=== PATIENT | female | born 1930 | race Caucasian/White ===

== ENCOUNTER → 2019-06-29 | Outpatient (CLI) | payer MEDICARE ==
[~2019-06-29] MED LIST: ALEN70TA10 PO; ASPI-1197 PO; CALC-24 PO; DILT120T PO; LORA10TA7 PO; OMEP40CA13 PO; WARF2.5T85 PO; [UNRECOGNIZED DRUG - OTHER] PO
== END | disposition home or self-care (01) ==
LOC: RAH 09:08
PROVIDERS: ATTEND Internal Medicine
DX: K80.20 Calculus of gallbladder without cholecystitis without obstruction (principal)
CPT/HCPCS: 76705

== ENCOUNTER → 2019-07-27 | Outpatient (CLI) | payer MEDICARE | END | disposition home or self-care (01) | LOC: RAH 07:41 | PROVIDERS: ATTEND Internal Medicine | DX: I70.0 Atherosclerosis of aorta (principal); G89.29 Other chronic pain | CPT/HCPCS: 76775 ==

== ENCOUNTER → 2020-03-26 | Outpatient (CLI) | payer MEDICARE ==
[~2020-03-26] MED LIST changes: -ALEN70TA10 PO; +ALEN70TA80 PO
== END | disposition home or self-care (01) ==
LOC: RAH 14:18
PROVIDERS: ATTEND Podiatrist
DX: I70.213 Atherosclerosis of native arteries of extremities with intermittent claudication, bilateral legs (principal); Z79.01 Long term (current) use of anticoagulants
CPT/HCPCS: 93922

== ENCOUNTER → 2021-10-09 | Outpatient (CLI) | payer MEDICARE ==
[~2021-10-09] MED LIST changes: -OMEP40CA13 PO; +OMEP40CA21 PO
== END | disposition home or self-care (01) ==
LOC: RAH 09:06
PROVIDERS: ATTEND Internal Medicine
DX: I73.9 Peripheral vascular disease, unspecified (principal); R09.89 Other specified symptoms and signs involving the circulatory and respiratory systems
CPT/HCPCS: 76770; 93925; 93975

== ENCOUNTER 2021-11-25 09:13 | Observation (INO) | payer MEDICARE ==
[2021-11-24 13:50] LABS: BASOPHILS % (AUTO) 1.2 % (0.0-5.0); EOSINOPHILS % (AUTO) 2.3 % (0.0-8.0); HEMATOCRIT 42.6 % (36-48); LYMPHOCYTES % (AUTO) 16.5 % (21.0-51.0); MEAN CORPUSCULAR HEMOGLOBIN 28.9 pg (27.0-33.0); MEAN CORPUSCULAR HGB CONC 31.5 g/dL (32.0-36.0); MONOCYTES % (AUTO) 8.4 % (3.0-13.0); NEUTROPHILS % (AUTO) 71.3 % (40.0-77.0); PLATELET COUNT (AUTO) 225 K/uL (130-400); RED BLOOD CELL COUNT(AUTO) 4.63 MIL/uL (4.00-5.50); RED CELL DISTRIBUTION WIDTH 13.9 % (11.0-15.5); WHITE BLOOD COUNT (AUTO) 6.9 K/uL (4.8-10.8)
[2021-11-24 14:01] LABS: CREATININE 1.4 mg/dL (0.5-1.5); POTASSIUM 4.7 mmol/L (3.5-5.1)
[2021-11-24 14:02] LABS: APPEARANCE,URINE CLEAR (CLEAR); BILIRUBIN,URINE NEGATIVE (NEGATIVE); COLOR,URINE YELLOW (YELLOW); GLUCOSE, URINE (UA) NEGATIVE (NEGATIVE); KETONES,URINE NEGATIVE (NEGATIVE); LEUKOCYTE ESTERASE ,URINE 75 Leu/uL (NEGATIVE); NITRATE,URINE NEGATIVE (NEGATIVE); OCCULT BLOOD,URINE NEGATIVE (NEGATIVE); PH,URINE 5.5 (5.0-8.0); PROTEIN,URINE 100 mg/dL (NEGATIVE); UROBILINOGEN,URINE 0.2 mg/dL (0.2-1.0)
[2021-11-24 14:06] LABS: INR 0.94 (0.85-1.15); PROTHROMBIN TIME 10.3 SEC (9.6-11.6)
[2021-11-24 14:07] LABS: PARTIAL THROMBOPLASTIN TIME 29.5 SEC (26.3-35.5)
[2021-11-24 14:10] LABS: BACTERIA,URINE RARE /HPF (None Seen); MUCUS,URINE FEW LPF (None Seen); OTHER CASTS, URINE 1 /LPF (None Seen); SQUAMOUS EPITHELIAL CELL,UR FEW /HPF (0-2)
[2021-11-24 14:31] LABS: B-TYPE NATRIURETIC PEPTIDE 724 pg/mL (0-100)
[2021-11-24 14:56] VITALS: BP 189/71
[~2021-11-25] VITALS: Ht 157.5 cm; Wt 53.9 kg
[2021-11-25] VITALS (10 sets, daily range): BP systolic 142–199; BP diastolic 59–99
[~2021-11-25 09:13] MED LIST changes: -ALEN70TA80 PO; +APIX5TAB PO; -ASPI-1197 PO; +BETA1TAB20 PO; -CALC-24 PO; +DILT120C92 PO; -DILT120T PO; +FLUT12AE IH; +HYDR200T4 PO; +LEVO25CA4 PO; -LORA10TA7 PO; -OMEP40CA21 PO; -WARF2.5T85 PO; -[UNRECOGNIZED DRUG - OTHER] PO
[2021-11-25] MEDS ORDERED: 0.9%NACL 1000ML 1,000 ML IV ONE (09:35)
[2021-11-25] MEDS ORDERED: LIDOCAINE HCL 1% 10 ML VIAL ONE (12:30)
[2021-11-25] MEDS ORDERED: NITROGLYCERIN 50MG VIAL ONE (12:31)
[2021-11-25] MEDS ORDERED: HEPARIN 10,000 UNIT/10ML (1,000 UNIT/ML) VIAL ONE (12:31)
[2021-11-25] MEDS ORDERED: VERAPAMIL HCL 2.5 MG/ML VIAL ONE (12:31)
[2021-11-25] MEDS ORDERED: IODIXANOL 320 MG/ML 100 ML VIAL ONE (12:33)
[2021-11-25] MEDS ORDERED: FENTANYL CITRATE PF 50 MCG/1 ML 2ML VIAL ONE ×2 (12:50→13:34)
[2021-11-25] MEDS: 0.9%NACL 1000ML 500 ML IV SCH ×2 (14:00→20:14)
[2021-11-25] MEDS ORDERED: ALBUTEROL 0.083% 2.5 MG/3 ML INH IH PRN (14:00)
[2021-11-25] MEDS ORDERED: ONDANSETRON 4MG INJ IV PRN (14:00)
[2021-11-25] MEDS ORDERED: ACETAMINOPHEN 325 MG TAB PO PRN (14:00)
[2021-11-25] MEDS ORDERED: LABETALOL 20MG SYG IV PRN (18:30)
[2021-11-26] VITALS: BP 179/72
[2021-11-26] MEDS: 0.9%NACL 1000ML 500 ML IV SCH (02:20)
[2021-11-26 04:12] LABS: HEMATOCRIT 35.7 % (36-48); MEAN CORPUSCULAR HEMOGLOBIN 29.3 pg (27.0-33.0); MEAN CORPUSCULAR HGB CONC 32.8 g/dL (32.0-36.0); MEAN CORPUSCULAR VOLUME 89.5 fL (79-99); RED BLOOD CELL COUNT(AUTO) 3.99 MIL/uL (4.00-5.50); RED CELL DISTRIBUTION WIDTH 13.5 % (11.0-15.5)
[2021-11-26 04:27] LABS: POTASSIUM 4.1 mmol/L (3.5-5.1)
[2021-11-26 05:29] VITALS: BP 161/77
[2021-11-26] MEDS ORDERED: LEVOTHYROXINE 25 MCG TABLET PO SCH (06:30)
[2021-11-26 07:00] VITALS: BP 164/76
[2021-11-26] MEDS ORDERED: APIX2.5T PO (08:11)
[2021-11-26] MEDS ORDERED: DILTIAZEM 120MG SR CAP PO SCH (09:00)
== END 2021-11-26 10:00 | disposition home or self-care (01) ==
LOC: DAH 09:13 → DAHIP 09:14 → 2DH 14:30 → UNDODISOB 11-26 10:00
PROVIDERS: ADMIT Internal Medicine; ATTEND Internal Medicine
DX: I73.9 Peripheral vascular disease, unspecified (principal); R01.1 Cardiac murmur, unspecified; R09.89 Other specified symptoms and signs involving the circulatory and respiratory systems; I10 Essential (primary) hypertension; I70.1 Atherosclerosis of renal artery; E11.51 Type 2 diabetes mellitus with diabetic peripheral angiopathy without gangrene; I48.0 Paroxysmal atrial fibrillation; Z79.01 Long term (current) use of anticoagulants; Z87.891 Personal history of nicotine dependence; Z90.710 Acquired absence of both cervix and uterus
CPT/HCPCS: 80048 ×2; 83880; 85025; 85610; 85730; 87088; 81001; 36415 ×2; 71045; 93005; 36200; 75716; 85027; C1769 ×2; C1894 ×2; G0378 ×20; J3010 ×2; J7030; J1644 ×2; J3490 ×3; Q9967; A4215; A4223 ×3; A4222; A4221; A4663; A4216; A4606; 99156; 99157

== ENCOUNTER → 2021-12-12 | Outpatient (CLI) | payer MEDICARE ==
[~2021-12-12] MED LIST changes: +APIX2.5T PO; -APIX5TAB PO
== END | disposition home or self-care (01) ==
LOC: SHCH 08:04
PROVIDERS: ATTEND Internal Medicine
DX: I08.0 Rheumatic disorders of both mitral and aortic valves (principal); I10 Essential (primary) hypertension; E78.5 Hyperlipidemia, unspecified; E11.9 Type 2 diabetes mellitus without complications; R01.1 Cardiac murmur, unspecified
CPT/HCPCS: 93306

== ENCOUNTER 2022-01-24 21:03 | Inpatient (IN) | payer MEDICARE ==
[~2022-01-24] VITALS: Ht 157.5 cm; Wt 54.3 kg
[2022-01-24] MEDS ORDERED: SOLU-MEDROL 125MG VIAL ONE (21:09)
[2022-01-24 21:30] LABS: ABG BASE EXCESS -2.8 mmol/L (-2.0-3.0); ABG HCO3 22.1 mmol/L (21.0-28.0); ABG OXYGEN SATURATION 99.9 % (95.0-99.0); ABG PCO2 39 mmHg (32-45)
[2022-01-24 21:31] LABS: BASOPHILS % (AUTO) 1.1 % (0.0-5.0); EOSINOPHILS % (AUTO) 2.9 % (0.0-8.0); HEMATOCRIT 36.8 % (36-48); MEAN CORPUSCULAR HGB CONC 32.3 g/dL (32.0-36.0); MEAN CORPUSCULAR VOLUME 89.5 fL (79-99); NEUTROPHILS % (AUTO) 74.5 % (40.0-77.0); PLATELET COUNT (AUTO) 222 K/uL (130-400); RED BLOOD CELL COUNT(AUTO) 4.11 MIL/uL (4.00-5.50); RED CELL DISTRIBUTION WIDTH 13.7 % (11.0-15.5); WHITE BLOOD COUNT (AUTO) 8.3 K/uL (4.8-10.8)
[2022-01-24 21:49] LABS: CREATININE 1.4 mg/dL (0.5-1.5); POTASSIUM 4.4 mmol/L (3.5-5.1)
[2022-01-24] MEDS ORDERED: DILTIAZEM 25MG INJ IVP ONE (22:00)
[2022-01-24 22:03] LABS: ALBUMIN 3.6 g/dL (3.5-5.0); TOTAL PROTEIN, SERUM 7.4 g/dL (6.0-8.3)
[2022-01-24] MEDS: DILTIAZEM 125 MG/25 ML INJ 125 MG in 0.9%NACL 100ML 100 ML IV SCH (22:08)
[2022-01-24 22:13] LABS: B-TYPE NATRIURETIC PEPTIDE 1550 pg/mL (0-100)
[2022-01-24] MEDS ORDERED: ACETAMINOPHEN 325 MG TAB PO ONE (23:00)
[2022-01-24] MEDS ORDERED: ONDANSETRON 4MG INJ IV PRN (23:30)
[2022-01-24] MEDS ORDERED: IPRATROPIUM/ALBUTEROL SULFATE 3 ML SOLUTION IH PRN (23:30)
[2022-01-24] MEDS ORDERED: NITROGLYCERIN 0.4 MG SL TAB SL PRN (23:30)
[2022-01-24] MEDS ORDERED: ACETAMINOPHEN 325 MG TAB PO PRN ×2 (23:30)
[2022-01-25] VITALS (7 sets, daily range): BP systolic 122–161; BP diastolic 65–90
[2022-01-25] MEDS ORDERED: DILTIAZEM 125MG+100 ML NS 125 ML IV ONE (00:16)
[2022-01-25] MEDS: IPRATROPIUM/ALBUTEROL SULFATE 3 ML SOLUTION IH SCH ×3 (02:32→10:14)
[2022-01-25] MEDS ORDERED: LEVO25CA4 PO (02:36)
[2022-01-25] MEDS ORDERED: LEVO50CA4 PO (02:37)
[2022-01-25] MEDS ORDERED: DILT240C46 PO (02:38)
[2022-01-25] MEDS ORDERED: ALBU18HF7 IH (02:42)
[2022-01-25] MEDS ORDERED: ATOR10 PO (02:43)
[2022-01-25] MEDS ORDERED: EYE GUARD PLUS (02:43)
[2022-01-25 03:38] LABS: APPEARANCE,URINE CLEAR (CLEAR); BILIRUBIN,URINE NEGATIVE (NEGATIVE); COLOR,URINE YELLOW (YELLOW); GLUCOSE, URINE (UA) NEGATIVE (NEGATIVE); KETONES,URINE 10 mg/dL (NEGATIVE); LEUKOCYTE ESTERASE ,URINE 75 Leu/uL (NEGATIVE); MUCUS,URINE FEW LPF (None Seen); NITRATE,URINE NEGATIVE (NEGATIVE); OCCULT BLOOD,URINE NEGATIVE (NEGATIVE); PH,URINE 5.5 (5.0-8.0); PROTEIN,URINE 100 mg/dL (NEGATIVE); SQUAMOUS EPITHELIAL CELL,UR FEW /HPF (0-2)
[2022-01-25 03:48] LABS: AMPHET/METH SCREEN,URINE NEGATIVE (NEGATIVE); BARBITURATE SCREEN, URINE NEGATIVE (NEGATIVE); BENZODIAZEPINES SCREEN,URINE NEGATIVE (NEGATIVE); CANNABINOID SCREEN,URINE NEGATIVE (NEGATIVE); COCAINE SCREEN,URINE NEGATIVE (NEGATIVE); OPIATE SCREEN,URINE NEGATIVE (NEGATIVE); PHENCYCLIDINE SCREEN,URINE NEGATIVE (NEGATIVE)
[2022-01-25 03:50] LABS: BASOPHILS % (AUTO) 0.4 % (0.0-5.0); HEMATOCRIT 33.5 % (36-48); LYMPHOCYTES % (AUTO) 4.2 % (21.0-51.0); MEAN CORPUSCULAR HEMOGLOBIN 28.6 pg (27.0-33.0); MEAN CORPUSCULAR HGB CONC 31.6 g/dL (32.0-36.0); MEAN CORPUSCULAR VOLUME 90.5 fL (79-99); MONOCYTES % (AUTO) 1.3 % (3.0-13.0); NEUTROPHILS % (AUTO) 93.7 % (40.0-77.0); PLATELET COUNT (AUTO) 204 K/uL (130-400); RED CELL DISTRIBUTION WIDTH 13.6 % (11.0-15.5); WHITE BLOOD COUNT (AUTO) 6.9 K/uL (4.8-10.8)
[2022-01-25 03:59] LABS: CREATININE 1.4 mg/dL (0.5-1.5); POTASSIUM 4.9 mmol/L (3.5-5.1)
[2022-01-25 04:08] LABS: ALBUMIN 3.2 g/dL (3.5-5.0); MAGNESIUM 2.1 mg/dL (1.80-2.40); TOTAL PROTEIN, SERUM 6.6 g/dL (6.0-8.3)
[2022-01-25] MEDS: DILTIAZEM 120MG SR CAP PO SCH (08:11)
[2022-01-25] MEDS: FAMOTIDINE 20MG TAB PO SCH ×2 (08:15→08:18)
[2022-01-25] MEDS: FUROSEMIDE 40MG VIAL IV SCH ×2 (08:17→21:06)
[2022-01-25] MEDS ORDERED: DILTIAZEM 120MG SR CAP PO SCH (09:00)
[2022-01-25] MEDS ORDERED: HEPARIN 5,000 UNIT VIAL SQ SCH (09:00)
[2022-01-25] MEDS ORDERED: FLUTICASONE/VILANTEROL 1 EACH AER.POW.BA IH SCH (09:22)
[2022-01-25] MEDS: LEVOTHYROXINE 50 MCG TABLET PO SCH (09:27)
[2022-01-25] MEDS ORDERED: SOLU-MEDROL 40MG VIAL IVP SCH (12:00)
[2022-01-25] MEDS: IPRATROPIUM 0.5 MG/2.5 ML INH IH SCH ×3 (12:00→23:20)
[2022-01-25] MEDS ORDERED: THIAMINE HCL 100 MG/ML 2ML VIAL IVP SCH (12:00)
[2022-01-25] MEDS: ENOXAPARIN SODIUM 30 MG/0.3 ML SQ SCH ×2 (18:00→18:23)
[2022-01-25] MEDS: NITROFURANTOIN MONOHYD/M-CRYST 100 MG CAPSULE PO SCH ×2 (18:22→21:06)
[2022-01-25] MEDS: BUDESONIDE 0.5 MG/2 ML INH IH SCH (19:01)
[2022-01-25] MEDS ORDERED: APIXABAN 2.5 MG TABLET PO SCH (21:00)
[2022-01-25] MEDS: SOLU-MEDROL 40MG VIAL IVP SCH (21:06)
[2022-01-25] MEDS: DOXYCYCLINE HYCLATE 100 MG TABLET PO SCH (21:06)
[2022-01-25] MEDS: ATORVASTATIN 10 MG TABLET PO SCH (21:06)
[2022-01-26 04:15] VITALS: BP 144/87
[2022-01-26] MEDS: HYDROXYZINE 25 MG TABLET PO ONE ×2 (05:12→05:47)
[2022-01-26] MEDS: LEVOTHYROXINE 25 MCG TABLET PO SCH ×2 (05:12→05:47)
[2022-01-26 06:47] LABS: HEMATOCRIT 31.9 % (36-48); MEAN CORPUSCULAR HEMOGLOBIN 29.1 pg (27.0-33.0); MEAN CORPUSCULAR HGB CONC 32.9 g/dL (32.0-36.0); MEAN CORPUSCULAR VOLUME 88.4 fL (79-99); RED BLOOD CELL COUNT(AUTO) 3.61 MIL/uL (4.00-5.50); RED CELL DISTRIBUTION WIDTH 13.6 % (11.0-15.5); WHITE BLOOD COUNT (AUTO) 10.7 K/uL (4.8-10.8)
[2022-01-26 07:05] LABS: ALBUMIN 3.4 g/dL (3.5-5.0); CREATININE 1.7 mg/dL (0.5-1.5); MAGNESIUM 2.1 mg/dL (1.80-2.40); PHOSPHORUS 6.9 mg/dL (2.5-4.9); POTASSIUM 3.9 mmol/L (3.5-5.1); TOTAL PROTEIN, SERUM 6.5 g/dL (6.0-8.3)
[2022-01-26 07:10] LABS: INR 1.05 (0.85-1.15); PROTHROMBIN TIME 11.4 SEC (9.6-11.6)
[2022-01-26 07:12] LABS: PARTIAL THROMBOPLASTIN TIME 27.8 SEC (26.3-35.5)
[2022-01-26] MEDS: IPRATROPIUM 0.5 MG/2.5 ML INH IH SCH ×3 (07:16→19:19)
[2022-01-26] MEDS: BUDESONIDE 0.5 MG/2 ML INH IH SCH ×2 (07:16→19:24)
[2022-01-26 08:00] VITALS: BP 121/79
[2022-01-26] MEDS: FUROSEMIDE 40MG VIAL IV SCH (08:34)
[2022-01-26] MEDS: THIAMINE HCL 100 MG/ML 2ML VIAL IVP SCH (08:34)
[2022-01-26] MEDS: DILTIAZEM 120MG SR CAP PO SCH (08:35)
[2022-01-26] MEDS: NITROFURANTOIN MONOHYD/M-CRYST 100 MG CAPSULE PO SCH ×2 (08:35→20:06)
[2022-01-26] MEDS: SOLU-MEDROL 40MG VIAL IVP SCH ×2 (08:35→20:06)
[2022-01-26] MEDS: DOXYCYCLINE HYCLATE 100 MG TABLET PO SCH ×2 (08:36→20:06)
[2022-01-26] MEDS: MULTIVITAMIN WITH MINERALS TABLET PO SCH (08:36)
[2022-01-26] MEDS: HYDROXYCHLOROQUINE SULFATE 200 MG TAB PO SCH (08:36)
[2022-01-26] MEDS: FAMOTIDINE 20MG TAB PO SCH ×2 (08:37→20:07)
[2022-01-26] MEDS: ENOXAPARIN SODIUM 30 MG/0.3 ML SQ SCH (08:37)
[2022-01-26] MEDS ORDERED: DILTIAZEM 125MG+100 ML NS 125 ML IV ONE (11:19)
[2022-01-26] MEDS: DILTIAZEM 125 MG/25 ML INJ 125 MG in 0.9%NACL 100ML 100 ML IV SCH (11:26)
[2022-01-26] MEDS ORDERED: DILTIAZEM 125 MG/25 ML INJ 125 MG in 0.9%NACL 100ML 100 ML IV SCH (12:00)
[2022-01-26 13:59] VITALS: BP 141/72
[2022-01-26 16:23] VITALS: BP 143/99
[2022-01-26 19:00] VITALS: BP 121/76
[2022-01-26] MEDS ORDERED: PHARMACY COMMUNICATION MISC SCH (20:00)
[2022-01-26] MEDS: ATORVASTATIN 10 MG TABLET PO SCH (20:06)
[2022-01-26] MEDS: PROPAFENONE HCL 150 MG TABLET PO SCH (20:06)
[2022-01-27] VITALS (7 sets, daily range): BP systolic 116–152; BP diastolic 82–97
[2022-01-27] MEDS: IPRATROPIUM 0.5 MG/2.5 ML INH IH SCH ×4 (00:07→18:56)
[2022-01-27 03:27] LABS: HEMATOCRIT 32.7 % (36-48); MEAN CORPUSCULAR HEMOGLOBIN 28.5 pg (27.0-33.0); MEAN CORPUSCULAR HGB CONC 32.1 g/dL (32.0-36.0); MEAN CORPUSCULAR VOLUME 88.6 fL (79-99); RED BLOOD CELL COUNT(AUTO) 3.69 MIL/uL (4.00-5.50); RED CELL DISTRIBUTION WIDTH 13.7 % (11.0-15.5); WHITE BLOOD COUNT (AUTO) 8.2 K/uL (4.8-10.8)
[2022-01-27 03:40] LABS: ALBUMIN 3.2 g/dL (3.5-5.0); CREATININE 1.6 mg/dL (0.5-1.5); POTASSIUM 4.5 mmol/L (3.5-5.1); TOTAL PROTEIN, SERUM 6.2 g/dL (6.0-8.3)
[2022-01-27] MEDS: PROPAFENONE HCL 150 MG TABLET PO SCH ×3 (05:09→20:01)
[2022-01-27] MEDS: LEVOTHYROXINE 25 MCG TABLET PO SCH (05:09)
[2022-01-27] MEDS: BUDESONIDE 0.5 MG/2 ML INH IH SCH ×2 (06:57→18:56)
[2022-01-27] MEDS: THIAMINE HCL 100 MG/ML 2ML VIAL IVP SCH (10:02)
[2022-01-27] MEDS: ENOXAPARIN SODIUM 30 MG/0.3 ML SQ SCH (10:02)
[2022-01-27] MEDS: SOLU-MEDROL 40MG VIAL IVP SCH (10:03)
[2022-01-27] MEDS: MULTIVITAMIN WITH MINERALS TABLET PO SCH (10:03)
[2022-01-27] MEDS: FAMOTIDINE 20MG TAB PO SCH ×2 (10:05→20:01)
[2022-01-27] MEDS: DOXYCYCLINE HYCLATE 100 MG TABLET PO SCH ×2 (10:05→20:01)
[2022-01-27] MEDS: NITROFURANTOIN MONOHYD/M-CRYST 100 MG CAPSULE PO SCH (10:05)
[2022-01-27] MEDS: DILTIAZEM 120MG SR CAP PO SCH (10:05)
[2022-01-27] MEDS: HYDROXYCHLOROQUINE SULFATE 200 MG TAB PO SCH (10:05)
[2022-01-27] MEDS: CEFTRIAXONE 1G VIAL IVP SCH (15:16)
[2022-01-27] MEDS: ATORVASTATIN 10 MG TABLET PO SCH (20:01)
[2022-01-28] MEDS: IPRATROPIUM 0.5 MG/2.5 ML INH IH SCH ×5 (00:06→23:42)
[2022-01-28 03:19] VITALS: BP 142/78
[2022-01-28 03:32] LABS: HEMATOCRIT 31.6 % (36-48); MEAN CORPUSCULAR HEMOGLOBIN 28.3 pg (27.0-33.0); MEAN CORPUSCULAR VOLUME 88.5 fL (79-99); RED BLOOD CELL COUNT(AUTO) 3.57 MIL/uL (4.00-5.50); RED CELL DISTRIBUTION WIDTH 13.6 % (11.0-15.5); WHITE BLOOD COUNT (AUTO) 7.1 K/uL (4.8-10.8)
[2022-01-28] MEDS: PROPAFENONE HCL 150 MG TABLET PO SCH ×3 (04:59→19:59)
[2022-01-28] MEDS: LEVOTHYROXINE 25 MCG TABLET PO SCH (05:37)
[2022-01-28] MEDS: BUDESONIDE 0.5 MG/2 ML INH IH SCH ×2 (06:41→19:18)
[2022-01-28] MEDS: ENOXAPARIN SODIUM 30 MG/0.3 ML SQ SCH (07:40)
[2022-01-28] MEDS: FAMOTIDINE 20MG TAB PO SCH ×2 (07:41→19:59)
[2022-01-28] MEDS: HYDROXYCHLOROQUINE SULFATE 200 MG TAB PO SCH (07:41)
[2022-01-28] MEDS: DOXYCYCLINE HYCLATE 100 MG TABLET PO SCH ×2 (07:43→20:00)
[2022-01-28] MEDS: MULTIVITAMIN WITH MINERALS TABLET PO SCH (07:43)
[2022-01-28] MEDS: DILTIAZEM 120MG SR CAP PO SCH (07:43)
[2022-01-28 08:00] VITALS: BP 107/87
[2022-01-28] MEDS: THIAMINE HCL 100 MG/ML 2ML VIAL IVP SCH (08:08)
[2022-01-28 11:52] VITALS: BP 119/82
[2022-01-28] MEDS: CEFTRIAXONE 1G VIAL IVP SCH (14:04)
[2022-01-28 16:00] VITALS: BP 133/95
[2022-01-28 16:32] LABS: CREATININE 1.4 mg/dL (0.5-1.5)
[2022-01-28 19:50] VITALS: BP 145/88
[2022-01-28] MEDS: ATORVASTATIN 10 MG TABLET PO SCH (19:59)
[2022-01-28 23:40] VITALS: BP 138/74
[2022-01-29 03:36] LABS: HEMATOCRIT 33.5 % (36-48); MEAN CORPUSCULAR HEMOGLOBIN 28.8 pg (27.0-33.0); MEAN CORPUSCULAR HGB CONC 31.9 g/dL (32.0-36.0); MEAN CORPUSCULAR VOLUME 90.1 fL (79-99); RED BLOOD CELL COUNT(AUTO) 3.72 MIL/uL (4.00-5.50); RED CELL DISTRIBUTION WIDTH 13.6 % (11.0-15.5); WHITE BLOOD COUNT (AUTO) 8.9 K/uL (4.8-10.8)
[2022-01-29 04:07] LABS: CREATININE 1.4 mg/dL (0.5-1.5); POTASSIUM 3.9 mmol/L (3.5-5.1)
[2022-01-29 04:18] VITALS: BP 133/79
[2022-01-29] MEDS: PROPAFENONE HCL 150 MG TABLET PO SCH ×3 (05:10→20:49)
[2022-01-29] MEDS: LEVOTHYROXINE 25 MCG TABLET PO SCH (05:16)
[2022-01-29] MEDS: IPRATROPIUM 0.5 MG/2.5 ML INH IH SCH ×4 (06:34→23:31)
[2022-01-29] MEDS: BUDESONIDE 0.5 MG/2 ML INH IH SCH ×2 (06:34→18:31)
[2022-01-29 07:58] VITALS: BP 141/86
[2022-01-29] MEDS: THIAMINE HCL 100 MG/ML 2ML VIAL IVP SCH (09:37)
[2022-01-29] MEDS: ENOXAPARIN SODIUM 30 MG/0.3 ML SQ SCH (09:38)
[2022-01-29] MEDS: DILTIAZEM 120MG SR CAP PO SCH (09:39)
[2022-01-29] MEDS: FAMOTIDINE 20MG TAB PO SCH ×2 (09:40→20:49)
[2022-01-29] MEDS: METOPROLOL TARTRATE 25 MG TAB PO SCH ×2 (09:40→20:49)
[2022-01-29] MEDS: MULTIVITAMIN WITH MINERALS TABLET PO SCH (09:40)
[2022-01-29] MEDS: HYDROXYCHLOROQUINE SULFATE 200 MG TAB PO SCH (09:40)
[2022-01-29] MEDS: DOXYCYCLINE HYCLATE 100 MG TABLET PO SCH ×2 (09:40→20:49)
[2022-01-29 11:56] VITALS: BP 122/83
[2022-01-29] MEDS: CEFTRIAXONE 1G VIAL IVP SCH (13:16)
[2022-01-29 16:18] VITALS: BP 126/89
[2022-01-29 20:23] VITALS: BP 127/76
[2022-01-29] MEDS: ATORVASTATIN 10 MG TABLET PO SCH (20:49)
[2022-01-29 23:43] VITALS: BP 138/91
[2022-01-30] VITALS (7 sets, daily range): BP systolic 105–148; BP diastolic 39–98
[2022-01-30] MEDS: PROPAFENONE HCL 150 MG TABLET PO SCH ×3 (05:17→20:12)
[2022-01-30] MEDS: LEVOTHYROXINE 25 MCG TABLET PO SCH (05:18)
[2022-01-30] MEDS: IPRATROPIUM 0.5 MG/2.5 ML INH IH SCH ×3 (06:29→18:22)
[2022-01-30] MEDS: BUDESONIDE 0.5 MG/2 ML INH IH SCH ×2 (06:29→18:40)
[2022-01-30] MEDS: ENOXAPARIN SODIUM 30 MG/0.3 ML SQ SCH (09:00)
[2022-01-30 09:17] LABS: HEMATOCRIT 39.5 % (36-48); MEAN CORPUSCULAR HEMOGLOBIN 28.7 pg (27.0-33.0); MEAN CORPUSCULAR HGB CONC 31.9 g/dL (32.0-36.0); RED BLOOD CELL COUNT(AUTO) 4.39 MIL/uL (4.00-5.50); RED CELL DISTRIBUTION WIDTH 13.6 % (11.0-15.5); WHITE BLOOD COUNT (AUTO) 9.7 K/uL (4.8-10.8)
[2022-01-30 09:36] LABS: CREATININE 1.5 mg/dL (0.5-1.5); POTASSIUM 4.3 mmol/L (3.5-5.1)
[2022-01-30] MEDS: METOPROLOL TARTRATE 25 MG TAB PO SCH ×2 (10:01→20:12)
[2022-01-30] MEDS: FAMOTIDINE 20MG TAB PO SCH ×2 (10:01→20:11)
[2022-01-30] MEDS: MULTIVITAMIN WITH MINERALS TABLET PO SCH (10:01)
[2022-01-30] MEDS: DOXYCYCLINE HYCLATE 100 MG TABLET PO SCH ×2 (10:02→20:11)
[2022-01-30] MEDS: DILTIAZEM 120MG SR CAP PO SCH (10:02)
[2022-01-30] MEDS: HYDROXYCHLOROQUINE SULFATE 200 MG TAB PO SCH (10:02)
[2022-01-30] MEDS: THIAMINE HCL 100 MG/ML 2ML VIAL IVP SCH (10:03)
[2022-01-30] MEDS: CEFTRIAXONE 1G VIAL IVP SCH (12:41)
[2022-01-30] MEDS ORDERED: METOPROLOL TARTRATE 25 MG TAB PO SCH ×2 (15:30→21:00)
[2022-01-30] MEDS: FUROSEMIDE 20MG VIAL IV SCH (18:21)
[2022-01-30] MEDS: APIXABAN 2.5 MG TABLET PO SCH (20:11)
[2022-01-30] MEDS: ATORVASTATIN 10 MG TABLET PO SCH (20:11)
[2022-01-31] MEDS: IPRATROPIUM 0.5 MG/2.5 ML INH IH SCH ×3 (00:08→12:00)
[2022-01-31 03:38] VITALS: BP 149/81
[2022-01-31] MEDS: PROPAFENONE HCL 150 MG TABLET PO SCH ×3 (05:23→17:55)
[2022-01-31] MEDS: METOPROLOL TARTRATE 25 MG TAB PO SCH (05:23)
[2022-01-31] MEDS: LEVOTHYROXINE 50 MCG TABLET PO SCH (05:24)
[2022-01-31] MEDS: FUROSEMIDE 20MG VIAL IV SCH (05:24)
[2022-01-31 05:53] LABS: BASOPHILS % (AUTO) 0.2 % (0.0-5.0); EOSINOPHILS % (AUTO) 2.6 % (0.0-8.0); HEMATOCRIT 37.6 % (36-48); LYMPHOCYTES % (AUTO) 9.6 % (21.0-51.0); MEAN CORPUSCULAR HEMOGLOBIN 28.5 pg (27.0-33.0); MEAN CORPUSCULAR HGB CONC 31.9 g/dL (32.0-36.0); MEAN CORPUSCULAR VOLUME 89.3 fL (79-99); MONOCYTES % (AUTO) 8.1 % (3.0-13.0); PLATELET COUNT (AUTO) 246 K/uL (130-400); RED BLOOD CELL COUNT(AUTO) 4.21 MIL/uL (4.00-5.50); RED CELL DISTRIBUTION WIDTH 13.4 % (11.0-15.5); WHITE BLOOD COUNT (AUTO) 9.1 K/uL (4.8-10.8)
[2022-01-31 06:11] LABS: ALANINE AMINOTRANSFERASE 49 U/L (12-78); ALBUMIN 3.1 g/dL (3.5-5.0); ASPARTATE AMINOTRANSFERASE 25 U/L (10-37); CARBON DIOXIDE 30 mmol/L (21-32); CHLORIDE 104 mmol/L (101-111); CREATININE 1.5 mg/dL (0.5-1.5); CRP QUANTITATIVE < 2.00 mg/L (0.00-9.0); GLOMERULAR FILTR. RATE CALC 35 mL/min (>60); GLUCOSE,RANDOM 108 mg/dL (70-105); POTASSIUM 3.9 mmol/L (3.5-5.1); SODIUM SERUM 141 mmol/L (136-145); TOTAL PROTEIN, SERUM 6.2 g/dL (6.0-8.3); UREA NITROGEN, BLOOD 53 mg/dL (7-18)
[2022-01-31 06:30] LABS: B-TYPE NATRIURETIC PEPTIDE 1480 pg/mL (0-100)
[2022-01-31] MEDS: BUDESONIDE 0.5 MG/2 ML INH IH SCH (06:42)
[2022-01-31 08:00] VITALS: BP 133/85
[2022-01-31] MEDS: DOXYCYCLINE HYCLATE 100 MG TABLET PO SCH (09:14)
[2022-01-31] MEDS: DILTIAZEM 120MG SR CAP PO SCH (09:15)
[2022-01-31] MEDS: MULTIVITAMIN WITH MINERALS TABLET PO SCH (09:15)
[2022-01-31] MEDS: HYDROXYCHLOROQUINE SULFATE 200 MG TAB PO SCH (09:15)
[2022-01-31] MEDS: FAMOTIDINE 20MG TAB PO SCH (09:16)
[2022-01-31] MEDS: APIXABAN 2.5 MG TABLET PO SCH (09:16)
[2022-01-31] MEDS: THIAMINE HCL 100 MG/ML 2ML VIAL IVP SCH (09:16)
[2022-01-31 12:00] VITALS: BP 148/77
[2022-01-31] MEDS ORDERED: FURO20TA4 PO (15:08)
[2022-01-31] MEDS ORDERED: METO25TA6 PO (15:08)
[2022-01-31] MEDS ORDERED: PROP150T28 PO (15:08)
[2022-01-31] MEDS: CEFTRIAXONE 1G VIAL IVP SCH (15:33)
[2022-01-31 16:00] VITALS: BP 129/68
[2022-01-31] MEDS ORDERED: CEPH500B PO (17:28)
[2022-01-31] MEDS ORDERED: METOPROLOL TARTRATE 25 MG TAB PO SCH (21:00)
== END 2022-01-31 18:00 | disposition home or self-care (01) | DRG 291 ==
LOC: EDH 21:03 → EDHIP 23:04 → 2AH 01-25 01:36
PROVIDERS: ADMIT Hospitalist; ATTEND Hospitalist
PROC: 5A09357 Assistance with Respiratory Ventilation, Less than 24 Consecutive Hours, Continuous Positive Airway Pressure (ICD-10-PCS; principal; 2022-01-24)
PROC: 5A09357 Assistance with Respiratory Ventilation, Less than 24 Consecutive Hours, Continuous Positive Airway Pressure (ICD-10-PCS; 2022-01-25)
PROC: 5A09357 Assistance with Respiratory Ventilation, Less than 24 Consecutive Hours, Continuous Positive Airway Pressure (ICD-10-PCS; 2022-01-26)
DX: I13.0 Hypertensive heart and chronic kidney disease with heart failure and stage 1 through stage 4 chronic kidney disease, or unspecified chronic kidney disease (principal); I50.33 Acute on chronic diastolic (congestive) heart failure; J96.01 Acute respiratory failure with hypoxia; J18.9 Pneumonia, unspecified organism; I48.92 Unspecified atrial flutter; J44.0 Chronic obstructive pulmonary disease with (acute) lower respiratory infection; N39.0 Urinary tract infection, site not specified; N17.9 Acute kidney failure, unspecified; Z20.822 Contact with and (suspected) exposure to COVID-19; R91.1 Solitary pulmonary nodule; E03.9 Hypothyroidism, unspecified; D63.8 Anemia in other chronic diseases classified elsewhere; N18.32 Chronic kidney disease, stage 3b; H54.8 Legal blindness, as defined in USA; J84.10 Pulmonary fibrosis, unspecified; I48.0 Paroxysmal atrial fibrillation; I35.0 Nonrheumatic aortic (valve) stenosis; I73.9 Peripheral vascular disease, unspecified; E78.00 Pure hypercholesterolemia, unspecified; Z87.891 Personal history of nicotine dependence; Z85.118 Personal history of other malignant neoplasm of bronchus and lung; Z79.01 Long term (current) use of anticoagulants; Z79.899 Other long term (current) drug therapy; Z82.0 Family history of epilepsy and other diseases of the nervous system; Z82.3 Family history of stroke; Z98.82 Breast implant status; Z90.710 Acquired absence of both cervix and uterus; Z85.42 Personal history of malignant neoplasm of other parts of uterus; Z83.3 Family history of diabetes mellitus; Z82.5 Family history of asthma and other chronic lower respiratory diseases; Z82.49 Family history of ischemic heart disease and other diseases of the circulatory system
CPT/HCPCS: 36415; 36600; 71045; 71250; 74230; 80048; 80053; 80305; 81001; 82550; 82803; 82948; 83605; 83735; 83874; 83880; 84100; 84145; 84443; 84484; 85025; 85027; 85610; 85730; 86140; 87040; 87088; 87635; 87804; 92610; 92611; 93005; 93306; 94640; 94660; 94664; C9803; G0378; J0696; J1644; J1650; J1940; J2920; J2930; J3411; J3490

== ENCOUNTER → 2022-02-19 | Outpatient (CLI) | payer MEDICARE ==
[~2022-02-19] MED LIST changes: +ALBU18HF7 IH; +ATOR10 PO; -BETA1TAB20 PO; +CEPH500B PO; -DILT120C92 PO; +DILT240C46 PO; +EYE GUARD PLUS; +FURO20TA4 PO; +LEVO50CA4 PO; +METO25TA6 PO; +PROP150T28 PO
[2022-02-19 13:13] LABS: CREATININE 1.5 mg/dL (0.5-1.5); POTASSIUM 4.4 mmol/L (3.5-5.1)
== END | disposition home or self-care (01) ==
LOC: LAB 08:36
PROVIDERS: ATTEND Internal Medicine
DX: I48.0 Paroxysmal atrial fibrillation (principal); I11.0 Hypertensive heart disease with heart failure; I50.33 Acute on chronic diastolic (congestive) heart failure; I73.9 Peripheral vascular disease, unspecified; Z79.01 Long term (current) use of anticoagulants
CPT/HCPCS: 36415; 80048; 83880